=== PATIENT | female | born 1995 | race Caucasian/White ===

== ENCOUNTER 2025-04-18 13:38 | Emergency (ER) | payer OTHER, SELFPAY ==
[2025-04-18] MEDS ORDERED: Lidocaine 1% PF 5 ML VIAL ONE (13:57)
[2025-04-18] MEDS ORDERED: Boostrix 0.5 ML (Tdap) VIAL (>/=7 yrs of age) ONE (13:58)
[2025-04-18] MEDS ORDERED: Acetaminophen 500 MG TAB ONE (14:54)
== END 2025-04-18 14:58 | disposition home or self-care (01) ==
LOC: MADERS 13:38
DX: S01.81XA Laceration without foreign body of other part of head, initial encounter (principal); F17.290 Nicotine dependence, other tobacco product, uncomplicated; Z23 Encounter for immunization; W22.8XXA Striking against or struck by other objects, initial encounter
CPT/HCPCS: 90471; 90715